=== PATIENT | female | born 1985 | race Caucasian/White ===

== ENCOUNTER 2017-03-18 18:34 | Emergency (ER) | payer BC ==
[~2017-03-18] VITALS: Ht 162.6 cm; Wt 56.7 kg
[2017-03-18 19:30] VITALS: BP 115/72
--- NOTE | 2017-03-18 19:45 | Emergency Room Report ---
History of Present Illness General Chief Complaint: General Complaint Source: Patient Present Illness HPI 31 -year-old female presents emergency department complaining of having shakiness, exacerbation of her anxiety, and tingling sensations in the hands and feet after abruptly stopping gabapentin and Ativan three days ago. States that she is currently in sober living, and her doctor is out of town until Sunday. Patient states that after making that decision to stop taking her medications, the facility will not let her resume her previous medication's unless prescribed by a doctor. Patient denies nausea, vomiting, fevers, chills , history of thyroid dysfunction, rashes, abdominal pain. Denies CP, Palpitations, LOC, AMS, dizziness, Changes in Vision, Sensation, paresthesias, or a sudden severe headache. Patient denies trauma or fall. Patient states she was taking both medications for anxiety. Patient also states she is in sober living after going through detox for heroin dependence. She denies history of seizures. Allergies: Coded Allergies: No Known Allergies (Unverified , 03/18/17) Patient History Past Medical History: see triage record Past Surgical History: none Pertinent Family History: none Last Menstrual Period: March 07 Now: No Immunizations: UTD Reviewed Nursing Documentation: PMH: Agreed, PSxH: Agreed Nursing Documentation-PMH Past Medical History: No History, Except For Review of Systems All Other Systems: negative except mentioned in HPI Physical Exam Vital Signs Date Time Temp Pulse Resp B/P Pulse Ox O2 Delivery O2 Flow Rate FiO2 03/18/17 19:20 98.1 105 16 115/72 100 Room Air Sp02 EP Interpretation: reviewed, abnormal - mild tachycardia at 105 bpm General Appearance: well appearing, no apparent distress, alert, GCS 15, non- toxic Head: normocephalic, atraumatic Eyes: bilateral eye PERRL, bilateral eye normal inspection ENT: hearing grossly normal, normal pharynx, no angioedema, normal voice Neck: full range of motion, supple/symm/no masses Respiratory: chest non-tender, lungs clear, normal breath sounds, speaking full sentences Cardiovascular #1: regular rate, rhythm, no edema Gastrointestinal: normal bowel sounds, non tender, soft, no guarding, no rebound Rectal: deferred Genitourinary: normal inspection, no CVA tenderness Musculoskeletal: back normal, gait/station normal, normal range of motion, non- tender Neurologic: alert, oriented x3, responsive, motor strength/tone normal, sensory intact, speech normal Psychiatric: judgement/insight normal, memory normal, mood/affect normal, no suicidal/homicidal ideation, anxious Skin: normal color, no rash, warm/dry, well hydrated Medical Decision Making PA Attestation Dr Flores is my supervising Physician whom patient management has been discussed with. Diagnostic Impression: Primary Impression: Anxious reaction ER Course 26 -year-old female presents emergency department complaining of having shakiness, exacerbation of her anxiety, and tingling sensations in the hands and feet after abruptly stopping gabapentin and Ativan three days ago. States that she is currently in sober living, and her doctor is out of town until Sunday. Patient states that after making that decision to stop taking her medications, the facility will not let her resume her previous medication's unless prescribed by a doctor. Patient denies nausea, vomiting, fevers, chills , history of thyroid dysfunction, rashes, abdominal pain. Denies CP, Palpitations, LOC, AMS, dizziness, Changes in Vision, Sensation, paresthesias, or a sudden severe headache. Patient denies trauma or fall. Patient states she was taking both medications for anxiety. Patient also states she is in sober living after going through detox for heroin dependence. She denies history of seizures. Ddx considered but are not limited to anxiety, DE, PE, asthma, thyroid storm, hyperthyroid, EPS Vital signs: are WNL, pt. is afebrile, initially mild tachycardic 105 BPM H&PE are most consistent with anxious reaction. - [facility] report for the previous 10 months show only one previous rx for xanax that was several months ago. -- Pt. is not regularly prescribed benzodiazepines. ORDERS: none required at this time, the diagnosis is clinical ED INTERVENTIONS: - None required at this time, pt. is calm, NAD Pt. is currently in sober living following Detox last month. Given [facility] report not showing regular rx of Benzodiazepines, and that gabapentin is an unusual medication to be prescribed at highest dosage for dx of anxiety with no co-morbid conditions, I will not be refilling this pt.s reported medications. d/ w pt. that sober living/detox will have to evaluate her and decide to continue his original rx. D/w pt. that I will rx an non-addictive , non-benzo anxiolytic medication for her to use in the mean time. DISCHARGE: At this time pt. is stable for d/c to home. Will provide printed patient care instructions, and any necessary prescriptions. Care plan and follow up instructions have been discussed with the patient prior to discharge. Last Vital Signs Date Time Temp Pulse Resp B/P Pulse Ox O2 Delivery O2 Flow Rate FiO2 03/18/17 19:20 98.1 105 16 115/72 100 Room Air Disposition: HOME, SELF-CARE Condition: Stable Scripts Buspirone Hcl* (BUSPAR*) 10 Mg Tablet 10 MG ORAL THREE TIMES A DAY, #15 TAB 0 Refills Prov: Preeti Fox 03/18/17 Patient Instructions: Medical Screening Exam Additional Instructions: Take medications as directed. Follow up with a Primary Care Provider or Psychiatric Provider in 3-5 days, even if your symptoms have resolved. --Please review list of primary care clinics, if you do not already have a primary care provider Return sooner to ED if new symptoms occur, or current symptoms become worse. - Please note that this Emergency Department Report was dictated using [employer] caster technology software, occasionally this can lead to erroneous entry secondary to interpretation by the dictation equipment. Preeti Fox Mar 18, 2017 19:45
[2017-03-18] MEDS ORDERED: BUSPAR10 MG ORAL (19:47)
[2017-03-18 20:00] VITALS: BP 115/72
== END 2017-03-18 20:00 | disposition home or self-care (01) ==
LOC: EMR 19:35
DX: F41.9 Anxiety disorder, unspecified (principal)
CPT/HCPCS: 99283